=== PATIENT | male | born 1990 | race Caucasian/White ===

== ENCOUNTER 2018-04-20 18:56 | Emergency (ER) | payer BC ==
[~2018-04-20] VITALS: Ht 193 cm; Wt 101.6 kg
[2018-04-20 19:07] VITALS: BP 158/82
[2018-04-20] MEDS ORDERED: IBUPROFEN 200 MG TABLET ONE (20:34)
[2018-04-20] MEDS ORDERED: IBUPROFEN 200 MG TABLET PO ONE (21:00)
== END 2018-04-20 20:41 | disposition home or self-care (01) ==
LOC: ED 19:51
DX: S60.122A Contusion of left index finger with damage to nail, initial encounter (principal); W45.8XXA Other foreign body or object entering through skin, initial encounter; Y93.89 Activity, other specified; Y92.89 Other specified places as the place of occurrence of the external cause; Y99.8 Other external cause status
CPT/HCPCS: 11740; 99283